=== PATIENT | male | born 1960 | race Caucasian/White ===

== ENCOUNTER 2025-07-06 02:51 | Emergency (ER) | payer OTHER, SELFPAY ==
[2025-07-06 03:08] VITALS: PULSE 90; O2SAT 99; BMI 28.1
--- NOTE | 2025-07-06 03:16 | EKG_ITS ---
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
--- NOTE | 2025-07-06 03:17 | EDNOTE_ITS ---
ED Chest Pain RME/HPI General Chief Complaint: Chest Pain Stated Complaint: CHEST PAIN Time Seen by Provider: 07/06/25 02:56 Arrival date/time: 07/06/25 02:51 RME / HPI RME / HPI narrative: Dr. Marinelli?s Main ED Evaluation: 65yo male with reported sudden awakening of lower substernal chest pain described as a burning sensation that is constant in nature x 30 minutes [employer]. Noted shortness of breath. No N/V or diaphoresis. No previous similar episodes. No pleuritic or exertional component. EMS was summoned and administered topical nitrates with equivocal response. PMH unremarkable. PSH noncontributory. Social history includes tobacco use, no alcohol or illicit drug use. Cardiac Risk Factors: strong family history of heart disease, positive tobacco use; no DM, HTN, or HLD Related Data Previous Rx's ?Medication ?Instructions ?Recorded albuterol sulfate 90 mcg/actuation 2 puff inhalation Q 6H PRN 06/03/22 aerosol inhaler (Ventolin HFA) shortness of breath or wheezing #8.5 grams metoclopramide HCl 5 mg tablet 5 mg PO Q12H #10 tabs 0 07/06/25 (Reglan) pantoprazole 40 mg tablet,delayed 40 mg PO QDAY #30 ta bs 07/06/25 release (Protonix) Allergies Allergy/AdvReac Type Severity Reaction Status Date / Time clindamycin Allergy Severe HIVES, Verified 07/06/25 03:10 VOMITING sulfamethoxazole Allergy Severe HIVES,VOMIT Verified 07/06/25 03:10 ING trimethoprim Allergy Severe HIVES,VOMIT Verified 07/06/25 03:10 ING vancomycin Allergy Severe HIVES,VOMIT Verified 07/06/25 03:10 ING Review of Systems Review of Systems Systems Reviewed: All systems reviewed, normal except as documented Past Medical History Past Medical History CARDIAC: Negative Cardiac Disorders or Congestive Heart Failure RESPIRATORY: Negative Chronic Obstructive Pulmonary Disease (COPD) or Asthma GENITOURINARY: Negative Renal Disease ENDOCRINE: Negative Diabetes Mellitus Type 1 or Diabetes Mellitus Type 2 HEMATOLOGIC: Negative Sickle Cell Disease Social History SMOKING STATUS: Former smoker ED Exam Narrative Physical exam: GENERAL APPEARANCE: alert and oriented x 4, occasionally wincing secondary to chest pain, [id number] pain distress VITALS: All vitals were reviewed and the pulse ox is % on room air, which is normal according to my interpretation. HEENT: Normocephalic, atraumatic; pupils equal, round, reactive to light; EOMI; mucous membranes pink, moist; oropharynx clear NECK: Supple, no JVD LUNGS: CTABL; no wheezes, no rales, no rhonchi HEART: Regular rate, regular rhythm; normal S1, S2; no murmurs CHEST: no reproducible chest wall tenderness ABDOMEN: non distended; normal BS; soft, no tenderness, no guarding, no reboun d; no masses, no organomegaly, no hernia BACK: no CVA tenderness EXTREMITIES: atraumatic; no edema; no calf tenderness NEUROLOGIC: awake; alert and oriented x4; cranial nerves II-XII grossly intact; no focal sensory or motor deficits PSYCHIATRIC: appropriate mood and affect SKIN: warm, dry, normal color; no rashes Course Course Course Narrative: CXR is ordered for determining the etiology of chest pain. Quality Measures none Orders Category Date Time Status Application Developer Q4H START 00 Care 07/06/25 03:20 Completed Application Developer STAT Care 07/06/25 03:35 Completed Continuous Pulse Oximetry ONCE Care 07/06/25 03:35 Completed EKG (ED ONLY) *Do not use* NOW Care 07/06/25 03:16 Completed EKG (ED ONLY) *Do not use* NOW Care 07/06/25 06:09 Completed Insert IV STAT Care 07/06/25 03:35 Completed EKG (ED Only) Stat Exams 07/06/25 03:16 Draft EKG (ED Only) Stat Exams 07/06/25 06:09 Draft XR chest 1V portable Stat Exams 07/06/25 03:35 Completed B-Type Natriuretic Peptide Stat Lab 07/06/25 03:50 Completed CBC Stat Lab 07/06/25 03:50 Completed Comprehensive Metabolic Panel Stat Lab 07/06/25 03:50 Completed Drug Screen,Urine Stat Lab 07/06/25 05:30 Completed LDH (Lactate Dehydrogenase) Stat Lab 07/06/25 03:50 Completed Magnesium Stat Lab 07/06/25 03:50 Completed Partial Thromboplastin Time Stat Lab 07/06/25 03:50 Completed Prothrombin Time with INR Stat Lab 07/06/25 03:50 Completed Troponin I Stat Lab 07/06/25 03:50 Completed Troponin I Stat Lab 07/06/25 03:50 Completed Troponin I Stat Lab 07/06/25 06:39 Completed Urinalysis Stat Lab 07/06/25 05:30 Completed Lidocaine 2% Viscous [Xylocaine 2% Viscous] Med 07/06/25 03:27 Discontinued 15 ml PO X1 ONE Metoclopramide Inj [Reglan Inj] Med 07/06/25 03:27 Discontinued 10 mg IVP X1 ONE Pantoprazole Inj [Protonix Inj] Med 07/06/25 03:27 Discontinued 40 mg IVP X1 ONE mg Hyd/Al Hyd/Monik Susp [Maalox Susp] Med 07/06/25 03:27 Discontinued 30 ml PO X1 ONE Oxygen Delivery NOW RT 07/06/25 03:35 Completed Vital Signs Vital signs: Vital Signs Temperature 97.7 F 07/06/25 03:18 Pulse Rate 75 07/06/25 03:18 Respiratory Rate 17 07/06/25 03:18 Blood Pressure 133/67 H 07/06/25 03:18 Pulse Oximetry (%) 98 07/06/25 03:18 Oxygen Delivery Method Room Air 07/06/25 03:18 Chest Pain MDM Narrative MDM Narrative:: Scribe Attestation: 07/06/25 - Mariana Ashley am scribing for and in the presence of Dr. Marinelli. 65yo male with reported sudden awakening of lower substernal chest pain described as a burning sensation that is constant in nature x 30 minutes [employer]. Noted shortness of breath. Please see PE findings. CBC and chemistries are unremarkable. Initial troponin is undetected. UA without evidence of infection. EKG within normal limits and without signs of ischemia, infarction, or pericarditis. CXR was unremarkable. Patient placed on classroom monitor and was administered various GI preparations with [id number]-lbejnaaf improvement. Under serial EKG and enzymatic analysis, and if unremarkable, will discharge home on PPI and Reglan. Patient data External records reviewed:: [facility] previous records (Per chart review, patient was seen here on 06/03/22 for dyspnea.) Clinical information provided by:: patient Social determinants that could affect healthcare access:: substance use (tobacco use) Patient has the following chronic illnesses:: none How is presenting disease/condition affected by chronic disease/condition?: no chronic disease Evaluation data The following diagnostics were reviewed and interpreted by me:: lab results, radiology exam(s) and EKG tracing(s) Lab and/or radiology exams considered but not ordered:: none Interpretation Summary: CXR shows normal cardiac silhouette, no infiltrate, effusion, or pneumothorax, according to my interpretation. EKG done at 0319, sinus rhythm, rate of 70, no acute pathological ST segment changes, no ectopy, normal intervals, normal axis, according to my interpretation. Repeat EKG done at 0614, sinus rhythm, rate of 75, no acute pathological ST segment changes, no ectopy, normal intervals, normal axis, according to my interpretation. Medications / Prescriptions Medications or Prescriptions considered but not ordered:: none Medication administrations:: Medication Administration History Discontinued Medications Al Hydrox/Mg Hydrox/Simethicone (Mg Hyd/Al Hyd/Monik (Maalox Reg) Susp 30 Ml Udc) 30 ml PO X1 ONE Stop: 07/06/25 03:28 Last Admin: 07/06/25 03:36 Dose: 30 ml Documented By: SHEEBA Lidocaine HCl (Lidocaine Viscous 2% 15 Ml Udc) 15 ml PO X1 ONE Stop: 07/06/25 03:28 Last Admin: 07/06/25 03:49 Dose: Not Given Documented By: SHEEBA Non-Admin Reason: Patient Refused Metoclopramide HCl (Metoclopramide Inj 5 Mg/Ml Vial 2 Ml) 10 mg IVP X1 ONE; Protocol Stop: 07/06/25 03:28 Last Admin: 07/06/25 03:36 Dose: 10 mg Documented By: SHEEBA Pantoprazole Sodium (Pantoprazole Inj 40 Mg Vial) 40 mg IVP X1 ONE Stop: 07/06/25 03:28 Last Admin: 07/06/25 03:36 Dose: 40 mg Documented By: SHEEBA see above Consultations Consultation(s) initiated? (list below): No Diagnosis Chest Pain Differential Diagnosis: atypical chest pain, st elevation myocardial infarction, costochondritis and other (NSTEMI, musculoskeletal pain) Most likely diagnosis given after review of the tests above:: see clinical impression below Admission Indicated Admission indicated?: not indicated Admission Request Was there a request for admission?: No Disposition Plan Disposition Plan: Discharge Discharge Attestation Discharge Attestation: The patient and all family members were given an opportunity to ask questions and understood the discharge instructions. Discharge instructions specifically effects, indications for sooner follow up or return to the emergency department, and the expected course of current diagnosis. Patient condition: Stable Discharge Plan Plan Patient Disposition: HOME (Self Care) Discharge Disposition comment: Stable Prescriptions/Referrals Prescriptions/Med Rec: New pantoprazole [Protonix] 40 mg tablet,delayed release (DR/EC) 40 mg PO QDAY Qty: 30 0RF metoclopramide HCl [Reglan] 5 mg tablet 5 mg PO Q12H Qty: 10 0RF Rx Instructions: Patient instructed to take 1 tablet 30 minutes before breakfast and 30 minutes before bedtime. No Action albuterol sulfate [Ventolin HFA] 90 mcg/actuation HFA aerosol inhaler 2 puff inhalation Q6H PRN (Reason: shortness of breath or wheezing) Qty: 8.5 0RF Referrals: No Primary/Family,Physician [Primary Care Provider] - In 1 week Problem List Clinical Impression: Chest pain due to GERD Patient/Caregiver Discharge Instructions Discharge Activity: activity as tolerated Diet Instructions: Low salt Education Materials: ED GERD (Adult) Additional Instructions: Maintain head of bed elevation at night. Medications as directed. Morrison neutral diet for 1 to 2 weeks and advance as tolerated. Follow-up with primary care doctor as you may require upper endoscopy via GI specialist if symptoms persist. Return for bloody or dark stools or general worse condition. Print Language: Yi Stand Alone Forms: Makayla Award Info., Patient Portal Info Letter
[2025-07-06 03:18] VITALS: BP 133/67; PULSE 75; RESP 17; TEMP 36.5; O2SAT 98
[2025-07-06 03:20] VITALS: PULSE 75
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
[2025-07-06] MEDS: MG HYD/AL HYD/SIME (Maalox Reg) SUSP 30 ML UDC PO (03:36)
[2025-07-06] MEDS: METOCLOPRAMIDE INJ 5 MG/ML VIAL 2 ML 10 MG IVP (03:36)
[2025-07-06 04:01] LABS: Basophils # (Auto) 0.0 Thou/mm3 (0.0-0.2); Basophils % (Auto) 0 % (0-2.5); Eosinophils # (Auto) 0.0 Thou/mm3 (0.0-0.5); Eosinophils % (Auto) 1 % (0-10); Hematocrit 41.2 % (41.0-53.0); Hemoglobin 14.1 g/dL (13.5-16.0); Immature Granulocytes Auto 0.02 Thou/mm3 (0.00-0.00); Lymphocytes # (Auto) 1.4 Thou/mm3 (1.0-4.8); Lymphocytes % (Auto) 19 % (10-50); Mean Corpuscular HGB Conc 34.2 g/dl (31.0-37.0); Mean Corpuscular Hemoglobin 30.5 pg (25.0-35.0); Mean Corpuscular Volume 89 fL (80-100); Monocytes # (Auto) 0.4 Thou/mm3 (0.0-0.8); Monocytes % (Auto) 5 % (0-12); Neutrophils # (Auto) 5.7 Thou/mm3 (1.8-7.7); Neutrophils % (Auto) 76 % (37-80); Nucleated Red Blood Cell # 0.00 Thou/mm3 (0.00-0.00); Nucleated Red Blood Cell % 0 /100 WBC (0); Platelet Count 192 Thou/mm3 (140-440); RDW Standard Deviation 40.0 fL (35.1-43.9); Red Blood Count 4.62 Miln/mm3 (4.50-5.90); White Blood Count 7.6 Thou/mm3 (3.8-10.6)
[2025-07-06 04:16] LABS: INR 1.0 (0.9-1.3); Partial Thromboplastin Time 25.9 Seconds (22.0-36.0); Prothrombin Time 11.4 Seconds (9.0-12.2)
[2025-07-06 04:22] LABS: Troponin I < 0.020 ng/mL (0.0-0.045)
[2025-07-06 04:24] LABS: Alanine Aminotransferase 12 U/L (10-49); Albumin, Serum 4.1 gm/dL (3.4-4.8); Albumin/Globulin Ratio 2.1 (1.2-2.2); Alkaline Phosphatase 69 U/L (46-116); Anion Gap 9 (7-16); Aspartate Amino Transferase 18 U/L (0-34); BUN/Creatinine Ratio 20 Ratio (12-20); Bilirubin,Total 0.6 mg/dL (0.3-1.2); Blood Urea Nitrogen 24 mg/dL (9-23); Calcium 10.0 mg/dL (8.3-10.6); Calcium (Corrected) 10.0 mg/dL (8.5-10.1); Carbon Dioxide 28.5 mMol/L (20.0-31.0); Chloride 107 mMol/L (98-107); Creatinine (Component) 1.2 mg/dL (0.6-1.3); Estimated Creatinine Clearance 61.9 mL/min (>60); Globulin 2.0 gm/dL (2.3-3.5); Glucose 92 mg/dL (74-106); LDH (Lactate Dehydrogenase) 178 U/L (120-246); Magnesium 1.9 mg/dL (1.6-2.6); Osmolality,Calculated 290 (275-295); Potassium 4.1 mMol/L (3.4-5.1); Sodium 144 mMol/L (136-145); Total Protein 6.1 gm/dL (5.7-8.2); Troponin I < 0.020 ng/mL (0.0-0.045); eGFR > 60 See Note
[2025-07-06 05:48] VITALS: BP 125/79; PULSE 84; RESP 15; O2SAT 95
--- NOTE | 2025-07-06 06:09 | EKG_ITS ---
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
[2025-07-06 06:16] LABS: Collection Type, Urine Clean Catch
[2025-07-06 06:21] LABS: B-Type Natriuretic Peptide < 20 pg/mL (0-100)
[2025-07-06 06:34] LABS: Amphetamine/Methamp Scrn,U Positive (Negative); Barbiturate Screen,Urine Negative (Negative); Benzodiazepines Screen,Urine Negative (Negative); Benzoylecgonine Screen, Ur Negative (Negative); Fentanyl Screen,Urine Negative (Negative); Opiate Screen,Urine Negative (Negative); THC Screen,Urine Negative (Negative)
[2025-07-06 06:43] LABS: Bilirubin,Urine Negative (Negative); Blood,Urine Negative (Negative); Clarity,Urine Clear (Clear/Hazy); Color,Urine Yellow (Lt Yel-Yel); Glucose, Urine Negative (Negative); Hyaline Casts,Urine < 1 /hpf (0-1); Ketones,Urine Negative (Negative); Leukocyte Esterase,Urine Negative (Negative); Nitrite,Urine Negative (Negative); PH,Urine 6.0 (5.0-7.0); Protein,Urine Trace (Neg - Trace); RBC,Urine 1 /hpf (0-3); Specific Gravity,Urine 1.031 (1.001-1.035); Squamous Epithelial Cell,Urine < 1 /hpf (0-5); Urobilinogen,Urine Negative mg/dL (0.0-1.0); WBC,Urine 2 /hpf (0-5)
[2025-07-06 06:44] LABS: Sperm,Urine Present
[2025-07-06 07:01] LABS: Troponin I < 0.002 ng/mL (0.0-0.045)
[2025-07-06 07:21] VITALS: PULSE 73
[2025-07-06 08:36] VITALS: BP 119/53; PULSE 74; RESP 18; TEMP 37; O2SAT 97
== END 2025-07-06 09:50 | disposition home or self-care (01) ==
PROVIDERS: Emergency Provider Emergency Medicine
DX: K21.9 Gastro-esophageal reflux disease without esophagitis (principal); R07.9 Chest pain, unspecified
CPT/HCPCS: 36415; 71045; 80053; 80307; 81001; 83615; 83735; 83880; 84484; 85025; 85610; 85730; 93005; 96374; 96375; 99284; J2470; J2765; J3490; A9270

== ENCOUNTER 2025-10-20 02:04 | Emergency (ER) | payer OTHER, SELFPAY ==
[2025-10-20 02:05] VITALS: BP 166/90; PULSE 76; RESP 17; TEMP 36.9; O2SAT 96; BMI 24.7
[2025-10-20 03:27] LABS: Collection Type, Urine Catheter; Squamous Epithelial Cell,Urine 0 /hpf (0-5)
[2025-10-20 03:30] LABS: Bilirubin,Urine Negative (Negative); Blood,Urine Negative (Negative); Clarity,Urine Clear (Clear/Hazy); Color,Urine Lt-Yellow (Lt Yel-Yel); Culture Indicated,Urine Not Indicated; Glucose, Urine Negative (Negative); Ketones,Urine Negative (Negative); Leukocyte Esterase,Urine Negative (Negative); Nitrite,Urine Negative (Negative); PH,Urine 6.0 (5.0-7.0); Protein,Urine Negative (Neg - Trace); RBC,Urine 2 /hpf (0-3); Specific Gravity,Urine 1.023 (1.001-1.035); Urobilinogen,Urine Negative mg/dL (0.0-1.0); WBC,Urine 1 /hpf (0-5)
--- NOTE | 2025-10-20 04:10 | EDNOTE_ITS ---
ED Male Genitalurinary RME/HPI General Chief complaint: Urogenital-Male Stated complaint: HASN'T PEED IN 8HRS Time Seen by Provider: 10/20/25 02:13 Arrival date/time: 10/20/25 02:04 65M with history of BPH presents to ED with 2 weeks of worsening urinary retention with 8 hours of unable to urinate at all. Limitations: no limitations Related Data Previous Rx's ?Medication ?Instructions ?Recorded albuterol sulfate 90 mcg/actuation 2 puff inhalation Q 6H PRN 06/03/22 aerosol inhaler (Ventolin HFA) shortness of breath or wheezing #8.5 grams metoclopramide HCl 5 mg tablet 5 mg PO Q12H #10 tabs 0 07/06/25 (Reglan) pantoprazole 40 mg tablet,delayed 40 mg PO QDAY #30 ta bs 07/06/25 release (Protonix) tamsulosin 0.4 mg capsule 0.4 mg PO QDAY #30 caps 10/10 12/04 Allergies Allergy/AdvReac Type Severity Reaction Status Date / Time clindamycin Allergy Severe HIVES, Verified 07/06/25 03:10 VOMITING sulfamethoxazole Allergy Severe HIVES,VOMIT Verified 07/06/25 03:10 ING trimethoprim Allergy Severe HIVES,VOMIT Verified 07/06/25 03:10 ING vancomycin Allergy Severe HIVES,VOMIT Verified 07/06/25 03:10 ING Review of Systems Review of Systems Systems Reviewed: All systems reviewed, normal except as documented Genitourinary Genitourinary: Reports as per HPI and Reports difficulty urinating Past Medical History Past Medical History CARDIAC: Negative Cardiac Disorders or Congestive Heart Failure RESPIRATORY: Negative Chronic Obstructive Pulmonary Disease (COPD) or Asthma GENITOURINARY: Negative Renal Disease ENDOCRINE: Negative Diabetes Mellitus Type 1 or Diabetes Mellitus Type 2 HEMATOLOGIC: Negative Sickle Cell Disease Social History SMOKING STATUS: Current every day smoker ED Exam General Limitations: Present no limitations General appearance: Present alert and in no apparent distress Head Head exam: Present atraumatic Neck Neck exam: Present normal inspection, full ROM and trachea midline Chest Chest inspection: Present normal inspection and symmetric chest wall rise Neurological Exam Neurological exam: Present alert and oriented X3 Psychiatric Psychiatric exam: Present normal affect and normal mood Skin Skin exam: Present warm, dry, intact and normal color Course Quality Measures none Orders Category Date Time Status Catheter [Urinary Catheter] QS Care 10/20/25 02:45 Active Urinalysis, C/S if Indicated Stat Lab 10/20/25 03:24 Completed Tamsulosin HCl [Flomax] Med 10/20/25 04:00 Discontinued 0.4 mg PO X1 ONE Vital Signs Vital signs: Vital Signs Temperature 98.4 F 10/20/25 02:05 Pulse Rate 76 10/20/25 02:05 Respiratory Rate 17 10/20/25 02:05 Blood Pressure 166/90 H 10/20/25 02:05 Pulse Oximetry (%) 96 10/20/25 02:05 Oxygen Delivery Method Room Air 10/20/25 02:05 O2 at 96% on RA and WNLs Urogenital - Male MDM Narrative MDM Narrative:: 65M with history of BPH presents to ED with 2 weeks of worsening urinary retention with 8 hours of unable to urinate at all. Physical exam reveals uncomfortable-apperaing male. Patient is afebrile and alert. UA clean. Patient is adamant he does not want a Rivas bag to go home and wants it removed. He would prefer a trial of Flomax first. Patient data External records reviewed:: [facility] previous records Clinical information provided by:: patient Social determinants that could affect healthcare access:: none Patient has the following chronic illnesses:: BPH How is presenting disease/condition affected by chronic disease/condition?: exacerbated by Evaluation data The following diagnostics were reviewed and interpreted by me:: lab results Lab and/or radiology exams considered but not ordered:: ordered Interpretation Summary: above Medications / Prescriptions Medications or Prescriptions considered but not ordered:: ordered Medication administrations:: Medication Administration History Discontinued Medications Tamsulosin HCl (Tamsulosin Hcl 0.4 Mg Capsule) 0.4 mg PO X1 ONE Stop: 10/20/25 04:01 above Consultations Consultation(s) initiated? (list below): No Diagnosis Urogenital Male Differential Diagnosis: urinary tract infection, priapism, urethritis, epididymitis, genital herpes simplex, prostatitis, acute retention of urine and inguinal hernia Most likely diagnosis given after review of the tests above:: acute retention of urine Admission Indicated Admission indicated?: not indicated Admission Request Was there a request for admission?: No Disposition Plan Disposition Plan: Discharge Discharge Attestation Discharge Attestation: The patient and all family members were given an opportunity to ask questions and understood the discharge instructions. Discharge instructions specifically effects, indications for sooner follow up or return to the emergency department, and the expected course of current diagnosis. Patient condition: Stable Discharge Plan Plan Patient Disposition: HOME (Self Care) Discharge Disposition comment: Stable Prescriptions/Referrals Prescriptions/Med Rec: New tamsulosin 0.4 mg capsule 0.4 mg PO QDAY Qty: 30 0RF No Action albuterol sulfate [Ventolin HFA] 90 mcg/actuation HFA aerosol inhaler 2 puff inhalation Q6H PRN (Reason: shortness of breath or wheezing) Qty: 8.5 0RF pantoprazole [Protonix] 40 mg tablet,delayed release (DR/EC) 40 mg PO QDAY Qty: 30 0RF metoclopramide HCl [Reglan] 5 mg tablet 5 mg PO Q12H Qty: 10 0RF Rx Instructions: Patient instructed to take 1 tablet 30 minutes before breakfast and 30 minutes before bedtime. Problem List Clinical Impression: Acute retention of urine Patient/Caregiver Discharge Instructions Education Materials: ED Urinary Retention, Male Additional Instructions: Please follow-up with PCP within 24-48 hours and return immediately if symptoms worsen. Print Language: Welsh Stand Alone Forms: Patient Portal Info Letter ROHINI/LARISSA Supervising Physician ROHINI/LARISSA Supervising Physician: Dr. Pinto
[2025-10-20] MEDS: TAMSULOSIN HCL 0.4 MG CAPSULE PO (04:12)
== END 2025-10-20 04:16 | disposition home or self-care (01) ==
LOC: SERX 06:49
PROVIDERS: Physician Assistant; Emergency Provider Emergency Medicine
DX: N40.1 Benign prostatic hyperplasia with lower urinary tract symptoms (principal); R33.8 Other retention of urine
CPT/HCPCS: 51702; 81001; 99282; A4314; A9270